=== PATIENT | female | born 1955 ===

== ENCOUNTER 2024-12-21 11:54 | Emergency (ER) | payer SELFPAY ==
[2024-12-21 11:56] VITALS: BP 134/60; PULSE 87; RESP 16; TEMP 36.1; O2SAT 98; BMI 27.5
== END 2024-12-21 13:22 | disposition left against medical advice (07) ==
LOC: ED 13:56
PROVIDERS: PCP Internal Medicine
DX: R29.6 Repeated falls (principal)